=== PATIENT | male | born 1950 | race Caucasian/White ===

== ENCOUNTER 2022-08-07 10:50 | Outpatient (OUT) | payer MEDICARE, OTHER, SELFPAY ==
--- NOTE | 2022-08-07 11:34 | ECG_ITS ---
The Test Date: 2022-08-07 Pat Name: Toi Bonilla Department: Room: - Gender: Male Virologist: : 1950 Requested By: CARITO PARKER Order Number: [id number] Reading MD: SUNNY SANTO Measurements Intervals [place] Rate: 64 P: 46 DC: 148 QRS: 48 QRSD: 84 T: 47 QT: 351 QTc: 364 Interpretive Statements SINUS RHYTHM No previous ECG available for comparison Electronically Signed On 08-08-2022 7:00:16 EDT by SUNNY SANTO
[2022-08-07 11:49] LABS: Basophils Absolute Auto 0.1 10^3/uL (0.0-0.1); Basophils Percent Auto 0.8 % (0.2-2.0); Eosinophils Absolute Auto 0.2 10^3/uL (0.0-0.7); Hematocrit 48.3 % (42.0-54.0); Hemoglobin 16.5 g/dL (14.0-18.0); Immature Granulocytes Abs Auto 0.01 10^3/uL (0.00-0.03); Immature Granulocytes Pct Auto 0.2 % (0.0-0.5); Lymphocytes Absolute Auto 1.6 10^3/uL (1.2-3.8); Lymphocytes Percent Auto 25.6 % (20.5-60.0); Mean Corpuscular HGB Conc 34.2 g/dL (29.9-35.2); Mean Corpuscular Hemoglobin 32.7 pg (25.9-34.0); Mean Corpuscular Volume 95.6 fL (80.0-94.0); Mean Platelet Volume 8.9 fL (9.5-13.5); Monocytes Absolute Auto 0.6 10^3/uL (0.3-0.8); Monocytes Percent Auto 9.9 % (1.7-12.0); Neutrophils Absolute Auto 3.8 10^3/uL (1.4-6.5); Neutrophils Percent Auto 60.5 % (43.0-75.0); Platelet Count 165 10^3/uL (150-450); Red Blood Count 5.05 10^6/uL (4.70-6.10); Red Cell Distribution Width 12.4 % (11.0-15.0); White Blood Count 6.3 10^3/uL (4.0-11.0)
[2022-08-07 12:13] LABS: Partial Thromboplastin Time 32.4 sec (22.3-36.2); Prothrombin Time 10.6 sec (9.0-11.6)
[2022-08-07 12:53] LABS: Anion Gap 11.3; BUN Creatinine Ratio 19.6; Calcium 8.9 mg/dL (8.5-10.1); Carbon Dioxide 28.9 mmol/L (21.0-32.0); Chloride 105 mmol/L (98-107); Estimated GFR (African America >60 (>=60); Estimated GFR (Non-African Ame >60 (>=60); Glucose 86 mg/dL (74-106); Potassium 4.2 mmol/L (3.5-5.1); Sodium 141 mmol/L (136-145)
== END 2022-08-07 10:51 ==
LOC: PST 10:51
PROVIDERS: Visit Provider Urology
DX: Z01.812 Encounter for preprocedural laboratory examination (principal); Z01.810 Encounter for preprocedural cardiovascular examination; N40.1 Benign prostatic hyperplasia with lower urinary tract symptoms; N13.8 Other obstructive and reflux uropathy; R31.9 Hematuria, unspecified; R97.20 Elevated prostate specific antigen [PSA]
CPT/HCPCS: 36415; 80048; 85025; 85610; 85730; 93005

== ENCOUNTER 2022-08-15 09:32 | Day surgery (SDC) | payer MEDICARE, OTHER, SELFPAY ==
[2022-08-07 11:25] VITALS: BP 160/89; PULSE 73; RESP 16; TEMP 36.3; O2SAT 97; BMI 30.4
[2022-08-15] VITALS (10 sets, daily range): BP systolic 119–147; BP diastolic 64–86; PULSE 80–107; RESP 12–20; TEMP 36–37.1; O2SAT 97–99; BMI 30.4
[2022-08-15] MEDS: LACTATED RINGER'S SOLUTION 1,000 ML 50 ML IV ×2 (10:04→13:13)
[2022-08-15] MEDS: LEVOFLOXACIN IN DEXTROSE 5 % 500 MG/100 ML PIGGYBACK 100 MG IV (11:07)
[2022-08-15] MEDS: CEFAZOLIN SODIUM/DEXTROSE,ISO 1 GM/50 ML IV.SOLN IV ×3 (12:00→22:29)
--- NOTE | 2022-08-15 14:21 | PM.URSON ---
Urology Surgery Operative Note Operative Note Procedure Date: 08/15/22 Time Out Performed: yes Pre-op Diagnosis: #1. Benign prostatic hypertrophy with L UTS #2. Hematuria. #3. Bladder calculi Post-op Diagnosis: same Procedures performed: #1. Cystoscopy. #2. Transurethral resection of the prostate. #3. Cystolitholapaxy of bladder calculi Anesthesia: other (Gen. by LMA) Primary Surgeon: Howard Jimenez Complications: none Estimated blood loss (mL): 20 Findings: #1. Dramatic prostatic regrowth. #2. Bladder calculi; one to 3 cm. Specimens: #1. Prostate chips. #2. Bladder calculi. Drains: 22 Macanese three-way coud? Dozier catheter in the bladder Indications for Procedures: this gentleman has worsening bladder outlet obstructive symptoms, hematuria and bladder calculi. He now presents for transurethral resection of the prostate and cystolitholapaxy. He has signed an informed consent for these procedures after the risks were explained to him in great detail. Some of these risks include bleeding, infection, anesthesia, retrograde ejaculation, urinary incontinence both temporary and permanent, erectile dysfunction, need for further prostate procedures and bladder perforation just to name a few. Detailed description of Procedure: patient was brought to the operating room and placed on the operating room table in the supine position. SCDs were placed on his lower extremities and turned on and functioning during the entire case. Timeout was done by all parties in the room. We all agreed upon the patient's identification and the planned procedures for this patient. Gen. anesthesia was then administered via LMA. He was then repositioned into the modified dorsal lithotomy position. All pressure points were satisfactorily padded. Genitalia were sterilely prepped and draped in the usual fashion. I started by passing a 26 Macanese Olympus resectoscope with a visual obturator per urethra and into the bladder. The obturator was removed. I then passed the resecting element. This was a standard bipolar loop electrode. One could see the bladder calculi. These were actually fairly large. I then brought the scope back and identified the ureteral orifices. These were marked with the loop electrode. I then resected this capacious lobe protruding into the bladder down to the bladder neck level. I then evaluated the lateral lobes. There was dramatic regrowth of the left lateral lobe. This was coapting onto the right lateral lobe. There was minimal regrowth of the right side. I then uniformly resected the left lateral lobe from the bladder neck to the veru level. This was very capacious. I had to intermittently use a rollerball electrode to maintain hemostasis. The bladder neck was opened up at the 5 and 7:00 positions. The anterior tissue was then taken down in a similar fashion from the bladder neck to the veru level. I then brought the scope back to the apex. The apical tissue was tightly coapting. I had to uniformly resected this to relieve the obstruction. I also used the simultaneous vaporization and coagulation loop for parts of this resection. The Purple Blue Boick evacuator was used to get all the prostate chips out of the bladder. These were sent for permanent sections. The prostatic resection bed was fulgurated significantly. The scope was then removed. I then passed a 26 Macanese nephroscope through the urethra and into the bladder. I then passed the shock pulse device through the nephroscope and made contact with the 1st stone. I then began doing lithotripsy with this device and cracking this stone up very effectively. The 2nd stone was then similarly fragmented. I then used the ellick evacuator to get all the pieces out of the bladder and these were sent labeled bladder calculi. One last inspection of the bladder and the resection bed revealed there was no chips or stones in the bladder and there was no bleeding. The scope was removed after inspecting the channel from the apex. The prostatic urethra and bladder neck were now wide open. 22 Macanese three-way coud? Dozier was placed in the bladder. It was manually irrigated several times with a catheter tip syringe. 30 mL of fluid was then inflated into the balloon. It was taped to traction and CBI was started. It irrigated to light pink color. He was then transferred to a [facility] bed and wheeled to PACU in stable condition.
[2022-08-15] MEDS: SOLIFENACIN SUCCINATE 10 MG TABLET PO (15:18)
[2022-08-15] MEDS: 0.9 % SODIUM CHLORIDE 1,000 ML 80 ML IV (15:18)
[2022-08-16 04:27] VITALS: PULSE 90; RESP 18; TEMP 36.4; O2SAT 95
--- NOTE | 2022-08-16 05:21 | PC.NURSE ---
0500 traction released from patient. Chinyere care provided. 0600 CBI will to weaned off, leg bag applied and patient to ambulate in hallway. Education provided to patient on proper care of bags, s/s of UTI's and other infections. Handouts provided at this time. Patient states full understanding of how to place both leg bag and bed bag on and off. How to properly care for bags. Patient then will be placed in chair until breakfast and be closely monitored with leg bag on for any signs of clots or complications.
[2022-08-16 08:00] VITALS: RESP 16
--- NOTE | 2022-08-16 09:04 | SWNOTE1 ---
SW met with pt to discuss dc needs. Pt lives at home with his and has children/grandchildren for support as well. Pt is independent in the room and was dressed walking around. Pt denies any needs at discharge. SW to follow as needed.
[2022-08-16] MEDS: SOLIFENACIN SUCCINATE 10 MG TABLET PO (09:33)
[2022-08-23 22:07] LABS: Calcium Oxalate Dihydrate 10 % (.); Calcium Oxalate Monohydrate 90 % (.)
== END 2022-08-16 09:49 | disposition home or self-care (01) ==
LOC: SURGOUT 14:21 → MS 14:58
PROVIDERS: Visit Provider Urology
PROC: (CPT 52317; principal; 2022-08-15 10:40)
DX: N40.1 Benign prostatic hyperplasia with lower urinary tract symptoms (principal); N21.0 Calculus in bladder; R97.20 Elevated prostate specific antigen [PSA]; N41.1 Chronic prostatitis; R33.9 Retention of urine, unspecified; R31.21 Asymptomatic microscopic hematuria
CPT/HCPCS: 52317; 52630; 82365; 88305; 99999; J2704